=== PATIENT | female | born 1990 | race Caucasian/White ===

== ENCOUNTER 2016-12-14 16:02 | Inpatient (IN) | payer BC ==
[~2016-12-14] VITALS: Ht 160 cm; Wt 91.0 kg
[~2016-12-14 16:02] MED LIST: CEPHALEXIN500 MG PO; HYDROCODON-ACE1 EA10 PO; IBUPROFEN800 MG PO; PRENATAL + DHA1 EAC1 PO
--- NOTE | 2016-12-15 09:48 | PR ---
[facility] [address] [facility] [place], [place] [address] Signed Progress Notes IP Datetime Report Generated by CPN: 12/15/2016 09:48 PROGRESS NOTES: [id number] Impression: Normal progression of labor Procedures: Artificial ROM; Epidural Placement Plan: Continue present management; Anticipate Vaginal Delivery VITAL SIGNS: [id number] Vital Signs: Reviewed; Within Normal Limits EXAM: [id number] Dilatation: 4.0 Effacement: 25 Station: -3 Uterine Contractions: every 2-3 minutes MEMBRANES: [id number] Membrane Status: Ruptured Amniotic Fluid Color: Meconium, Light Comments: Comfortable with Epidural Fetus A: [id number] FHR Baseline: 120 Variability: Moderate 6-25bpm Accelerations: 15X15 Decelerations: None Presentation: Vertex Fetus B: [id number] Signing Physician: Marita Ramon MD CC: *Electronically Signed* 12/15/16 0948 MARITA RAMON MD PATIENT NAME: DAMIAN DEAL PROGRESS NOTE DATE OF : 91 PHYSICIAN: MARITA RAMON MD RPT #: [id number] REPORT IS CONFIDENTIAL AND NOT TO BE RELEASED WITHOUT AUTHORIZATION
--- NOTE | 2016-12-16 11:26 | PR ---
[facility] [address] [facility] [place] [address] Signed PP Progress Notes Datetime Report Generated by CPN: 12/16/2016 11:26 SUBJECTIVE: [id number] Pain: Within normal limits Nausea/Vomiting: Denies Vital Signs: [id number] Vital Signs: Reviewed; Within Normal Limits Notable Details: PP Hgb/Hct = 11.1/31.0 EXAM: [id number] Abdomen/Uterus: Normal Lochia: Normal Extremities: Normal IMPRESSION/PLAN/PROCEDURES: [id number] Impression: Normal progression Plan: Discharge Procedures: None Progress Notes: Doing well, without complaint. Wants to go home. Signing Physician: Marita Ramon MD CC: *Electronically Signed* 12/16/16 1126 MARITA RAMON MD PATIENT NAME: DAMIAN DEAL PROGRESS NOTE DATE OF : 91 PHYSICIAN: MARITA RAMON MD RPT #: [id number] REPORT IS CONFIDENTIAL AND NOT TO BE RELEASED WITHOUT AUTHORIZATION
== END 2016-12-16 12:55 | disposition home or self-care (01) | DRG 775 ==
LOC: FBC 12-15 00:01
PROVIDERS: ADMIT General Practice
PROC: 10E0XZZ Delivery of Products of Conception, External Approach (ICD-10-PCS; principal; 2016-12-15)
PROC: 10907ZC Drainage of Amniotic Fluid, Therapeutic from Products of Conception, Via Natural or Artificial Opening (ICD-10-PCS; 2016-12-15)
PROC: 00HU33Z Insertion of Infusion Device into Spinal Canal, Percutaneous Approach (ICD-10-PCS; 2016-12-15)
PROC: 3E0R3BZ Introduction of Anesthetic Agent into Spinal Canal, Percutaneous Approach (ICD-10-PCS; 2016-12-15)
DX: O76 Abnormality in fetal heart rate and rhythm complicating labor and delivery (principal); O77.0 Labor and delivery complicated by meconium in amniotic fluid; Z3A.39 39 weeks gestation of pregnancy; Z37.0 Single live birth
CPT/HCPCS: 01960; 36415; 82803; 83030; 85027; 86850; 86900; 86901; J2590; J2790; J2795; J7120

== ENCOUNTER 2019-05-20 12:49 | Inpatient (IN) | payer BC ==
[~2019-05-20] VITALS: Ht 157.5 cm; Wt 98.0 kg
--- NOTE | 2019-05-21 10:00 | PR ---
[facility] [address] [facility] [place], [place] [address] Signed Progress Notes IP Datetime Report Generated by CPN: 05/21/2019 10:00 PROGRESS NOTES: [id number] Impression: Normal progression of labor Procedures: Epidural Placement Plan: Continue present management; Anticipate Vaginal Delivery VITAL SIGNS: [id number] Vital Signs: Reviewed; Within Normal Limits EXAM: [id number] Dilatation: 8.0 Effacement: 90 Station: -2 Uterine Contractions: every 2-3 minutes MEMBRANES: [id number] Comments: Just received Epidural, geting comfortable. Expect delivery soon. Fetus A: [id number] FHR Baseline: 120 Variability: Moderate 6-25bpm Accelerations: 15X15 Decelerations: Variable Presentation: Vertex Fetus B: [id number] Signing Physician: Marita Ramon MD Copies: ~ *Electronically Signed* 05/21/19 1000 MARITA RAMON MD PATIENT NAME: DAMIAN DEAL PROGRESS NOTE DATE OF : 91 PHYSICIAN: MRAITA RAMON MD RPT #: [id number] REPORT IS CONFIDENTIAL AND NOT TO BE RELEASED WITHOUT AUTHORIZATION
--- NOTE | 2019-05-22 09:20 | PR ---
[facility] [address] [facility] [place] [address] Signed PP Progress Notes Datetime Report Generated by CPN: 05/22/2019 09:20 SUBJECTIVE: [id number] Pain: Within normal limits Nausea/Vomiting: Denies Vital Signs: [id number] Notable Details: PP Hjgb/Hct = 13.1/38.4 EXAM: [id number] Abdomen/Uterus: Normal Lochia: Normal Extremities: Normal IMPRESSION/PLAN/PROCEDURES: [id number] Impression: Normal progression Plan: Discharge Procedures: None Progress Notes: Doing well, no complalints, ready to go home Signing Physician: Marita Ramon MD Copies: ~ *Electronically Signed* 05/22/19919 MARITA RAMON MD PATIENT NAME: DAMIAN DEAL PROGRESS NOTE DATE OF : 91 PHYSICIAN: MARITA RAMON MD RPT #: [id number] REPORT IS CONFIDENTIAL AND NOT TO BE RELEASED WITHOUT AUTHORIZATION
== END 2019-05-22 11:30 | disposition home or self-care (01) | DRG 806 ==
LOC: FBC 05-21 00:07
PROVIDERS: ADMIT General Practice
PROC: 10E0XZZ Delivery of Products of Conception, External Approach (ICD-10-PCS; principal; 2019-05-21)
PROC: 0UQGXZZ Repair Vagina, External Approach (ICD-10-PCS; 2019-05-21)
PROC: 3E0P7VZ Introduction of Hormone into Female Reproductive, Via Natural or Artificial Opening (ICD-10-PCS; 2019-05-21)
PROC: 00HU33Z Insertion of Infusion Device into Spinal Canal, Percutaneous Approach (ICD-10-PCS; 2019-05-21)
PROC: 3E0R3BZ Introduction of Anesthetic Agent into Spinal Canal, Percutaneous Approach (ICD-10-PCS; 2019-05-21)
DX: O99.324 Drug use complicating childbirth (principal); O71.4 Obstetric high vaginal laceration alone; Z37.0 Single live birth; O99.354 Diseases of the nervous system complicating childbirth; F12.90 Cannabis use, unspecified, uncomplicated; Z3A.39 39 weeks gestation of pregnancy; O76 Abnormality in fetal heart rate and rhythm complicating labor and delivery; G43.909 Migraine, unspecified, not intractable, without status migrainosus; Z79.899 Other long term (current) drug therapy
CPT/HCPCS: 36415; 85027; A9270; J2590; J2795; J3010